=== PATIENT | male | born 1975 | race Caucasian/White ===

== ENCOUNTER 2024-04-27 15:13 | Emergency (ER) | payer OTHER, SELFPAY ==
[2024-04-27 15:15] VITALS: BP 138/106; PULSE 76; RESP 20; TEMP 36.7; O2SAT 100; BMI 27.3
--- NOTE | 2024-04-27 15:23 | ED_ITS ---
HPI - General Adult General Chief complaint: Flank Pain Stated complaint: possible kidney stone, trouble catching breath Time Seen by Provider: 04/27/24 15:16 History of Present Illness HPI narrative: Patient is a 49-year-old white male who works for a [employer], he has history of kidney stones, he had 1 surgically removed at [facility] in 2019. He has had a couple day history of left flank pain, his nose some pink tinged urine. This is very similar as prior kidney stones. The pain starts in his back and radiates her but little bit around his left flank, not all the way to his groin at this point. He had a 10 mm stone in the past. He has no other symptoms. He feels worse today. It was on and off the last couple of days. Related Data Previous Rx's ?Medication ?Instructions ?Recorded hydrocodone 5 mg-acetaminophen 325 1 tab PO Q6H PRN pain #14 tabs 04/27/24 mg tablet ketorolac 10 mg tablet 10 mg PO Q6H PRN pain 4 days #20 04/27/24 tabs Allergies Allergy/AdvReac Type Severity Reaction Status Date / Time shellfish derived Allergy Severe Anaphylaxis Verified 04/27/24 15:21 Review of Systems Status of ROS: Reports: 6 or more systems reviewed and unremarkable except as noted in History and below Exam Narrative: Exam Narrative: Objective: Patient's vital signs show elevated diastolic blood pressure, he is afebrile He is alert or x3, slightly pale He is in moderate distress secondary to discomfort Pulses regular HEENT unremarkable Back exam unremarkable the Abdomen benign soft He denies pain Extremities are no edema neurologic nonfocal Const: Vital Signs, click to edit/add: Vital Signs - 24 hr 04/27/24 15:15 04/27/24 15:27 04/27/24 15:27 Temperature 98.0 F Pulse Rate [Pulse Oximeter] 76 98 Respiratory Rate 20 32 H Blood Pressure [Ri ght Upper Arm] 138/106 H Pulse Oximetry 100 97 97 Oxygen Delivery Me thod Room Air Room Air 04/27/24 17:38 Temperature Pulse Rate [Pulse Oximeter] 78 Respiratory Rate 18 Blood Pressure [Ri ght Upper Arm] Pulse Oximetry 99 Oxygen Delivery Me thod Room Air Course Vital Signs Vital signs: Initial Vital Signs Temperature 98.0 F 04/27/24 15:15 Temperature Source Temporal Artery Scan 04/27/24 15:15 Pulse Rate 76 04/27/24 15:15 Pulse Rhythm Regular 04/27/24 15:15 Pulse Strength 3+ Normal 04/27/24 15:15 Respiratory Rate 20 04/27/24 15:15 Blood Pressure 138/106 H 04/27/24 15:15 Blood Pressure Mean 116 H 04/27/24 15:15 Blood Pressure Position Sitting 04/27/24 15:15 Pulse Oximetry 100 04/27/24 15:15 Oxygen Delivery Method Room Air 04/27/24 15:15 Vital Signs Temperature 98.0 F 04/27/24 15:15 Pulse Rate 76 04/27/24 15:15 Respiratory Rate 20 04/27/24 15:15 Blood Pressure 138/106 H 04/27/24 15:15 Pulse Oximetry 100 04/27/24 15:15 Oxygen Delivery Method Room Air 04/27/24 15:15 Temperature 98.0 F 04/27/24 15:15 Pulse Rate 78 04/27/24 17:38 Respiratory Rate 18 04/27/24 17:38 Blood Pressure 138/106 H 04/27/24 15:15 Pulse Oximetry 99 04/27/24 17:38 Oxygen Delivery Method Room Air 04/27/24 17:38 Medications Administered Medications: Discontinued Medications Generic Name Dose Route Start Last Admin Trade Name Freq PRN Reason Stop Dose Admin Sodium Chloride 1,000 mls @ 6,000 mls/hr 04/27/24 15:30 04/27/24 16:56 0.9 % Sodium Chloride 1000 Ml IV 04/27/24 15:39 Infused .Q10M DEAN Infusion Ketorolac Tromethamine 30 mg 04/27/24 15:23 04/27/24 15:31 Ketorolac 30 Mg/Ml Inj IVP 04/27/24 15:24 30 mg ONCE ONE Administration Morphine Sulfate 4 mg 04/27/24 15:27 04/27/24 15:36 Morphine 4 Mg/Ml Inj IVP 04/27/24 15:28 4 mg ONCE ONE Administration Morphine Sulfate 4 mg 04/27/24 17:32 04/27/24 17:30 Morphine 4 Mg/Ml Inj IVP 04/27/24 17:33 4 mg ONCE ONE Administration Medical Decision Making [facility] Narrative Medical decision making narrative: [age] year white male with a history of kidney stones, history of 10 mm kidney stone on the left surgically removed at [place] in 2019, presents with a couple day history of left flank pain blood tinged urine and increasing left flank pain. Rule out a kidney stone rule out other intra-abdominal pathology. Patient will get a urinalysis, labs, IV fluid, IV morphine and Toradol, will also get him a CT scan without contrast of his abdomen pelvis. Disposition pending findings above. Addendum 4:00 p.m.: The patient's white count is normal, he does have intramedullary stones on the left kidney and hydronephrosis on the left with a 6 mm mid ureteral stone, this is by my read. Radiologist to confirm. Patient has been given pain medicine he is feeling better. At this size the kidney stone still has a chance to pass on its own will have him strain his urine, use pain medications a former Toradol, will send him some [place] home as well as a urine strainer. He will need to be on light duty for couple of days and then follow up with his regular physician. He may need to see Urology as well. Lab Data Labs: Lab Results 04/27/24 04/27/24 Range/Units 15:27 16:58 WBC 9.80 (4.50-11.00) K/uL RBC 5.04 (4.30-5.90) m/uL Hgb 15.2 (13.5-17.5) gm/dL Hct 45.1 (37.0-53.0) % MCV 90 (80-100) fL MCH 30 (26-34) pg MCHC 34 (32-36) gm/dL RDW Coeff of [place] 11.8 (11.5-15.5) % Plt Count 223 (140-440) K/uL Neut % (Auto) 80.8 H (42.0-72.0) % Lymph % (Auto) 12.7 L (20-44) % [place] % (Auto) 5.8 (0.0-11.0) % Eos % (Auto) 0.3 (0.0-7.0) % Baso % (Auto) 0.3 (0.0-3.0) % Neut # (Auto) 7.90 H (1.7-7.0) K/uL Lymph # (Auto) 1.20 (0.90-2.90) K/uL [place] # (Auto) 0.60 (0.00-0.90) K/UL Eos # (Auto) 0.03 (0.00-0.50) K/uL Baso # (Auto) 0.03 (0.00-0.30) K/uL Abs Immat Gran (auto) 0.01 (0.00-0.30) K/uL Imm/Tot Granulo (auto) 0.1 % Sodium 138 (135-149) mmol/L Potassium 3.9 (3.6-5.1) mmol/L Chloride 104 (96-114) mmol/L Carbon Dioxide 25 (20-32) mmol/L Anion Gap 9 (7-15) mEq/L BUN 17 (7-30) mg/dL Creatinine 1.1 (0.5-1.5) mg/dL Estimated Creat Clear 88.18 Estimated GFR 82 ml/min Glucose 118 H (60-115) mg/dL Calcium 9.2 (8.4-10.6) mg/dL C-Reactive Protein < 0.5 L (0.5-1.0) mg/dL Urine Color Yellow (Yellow) Urine Appearance Clear (Clear) Urine pH 5.5 (5.0-8.5) Ur Specific [place] >= 1.030 (1.000-1.030) Urine Protein 1+ A (Negative) Urine Glucose (UA) Negative (Negative) Urine Ketones Trace A (Negative) Urine Blood 3+ A (Negative) Urine Nitrite Negative (Negative) Urine Bilirubin 1+ A (Negative) Urine Urobilinogen 0.2 (0.2-1.0) Ur Leukocyte Esterase Negative (Negative) Urine RBC 25-50 A (0-2) Urine WBC 0-2 (0-5) Ur Squamous Epith Cells Few (None-Few) Calcium Oxalate Crystal Moderate A (None) Urine Bacteria None (None) Discharge Plan Discharge Clinical Impression: Acute left flank pain, Kidney stone Patient Disposition: Home w/ Parent or Adult Condition: Improved Additional Instructions: Strain urine, pain medicines as needed, recommend off work for a couple of days, recommend recheck with regular doctor in 3 days. You may need to see urology again. Hopefully this stone will pass. If not you may need removal again of the stone. Return to ED if problems or concerns or increasing pain is not managed with oral medicines. Activity Level: Light activity Discharge Diet: Regular Prescriptions: New hydrocodone-acetaminophen 5-325 mg tablet 1 tab PO Q6H PRN (Reason: pain) Qty: 14 0RF ketorolac 10 mg tablet 10 mg PO Q6H PRN (Reason: pain) 4 Days Qty: 20 0RF Follow Up/Referrals: Wally Wick MD [Primary Care Provider] - Stand Alone Forms: [employer] Info Instructions
[2024-04-27 15:27] VITALS: PULSE 98; RESP 32; O2SAT 97
--- NOTE | 2024-04-27 15:27 | CRLHL7_ITS ---
For Patients: As a result of the Century Cures Act, medical imaging exams and procedure reports are released immediately into your electronic medical record. You may view this report before your referring provider. If you have questions, please contact your health care provider. INDICATION: Left flank pain since , history of kidney stones TECHNIQUE: CT abdomen and pelvis without contrast. COMPARISON: 07/30/[address] FINDINGS: Lower chest: Unremarkable. Liver: Normal in size and attenuation. No masses. Gallbladder and bile ducts: No stones or inflammation. No biliary dilatation. Pancreas: Unremarkable. No mass or inflammation. Spleen: Normal in size. No masses. Adrenal glands: 2.2 cm benign myelolipoma in the right adrenal gland, unchanged. Kidneys: 7 mm stone in the left proximal ureter causing mild left-sided hydronephrosis and perirenal edema. Additional tiny nonobstructing bilateral stones. GI tract: Unremarkable. Normal in caliber. No sign of mass or inflammation. Normal appendix. Vasculature: Unremarkable. Lymph nodes: No lymphadenopathy. Abdominal wall/Omentum/Peritoneum: Unremarkable. No sign of mass or infiltration. No free air or significant free fluid. Pelvis: Unremarkable. No pelvic masses. Bones: Unremarkable for age. IMPRESSION: 7 mm obstructing stone in the left proximal ureter. Please note that all CT scans at this facility use dose modulation, iterative reconstruction, and/or weight-based dosing when appropriate to reduce radiation dose to as low as reasonably achievable. Dictated by Bj Simpson MD @ 04/27/2024 5:19:45 PM (Electronically Signed)
[2024-04-27] MEDS: KETOROLAC 30 MG/ML inj IVP (15:31)
[2024-04-27] MEDS: MORPHINE 4 MG/ML INJ IVP ×2 (15:36→17:30)
[2024-04-27] MEDS: 0.9 % SODIUM CHLORIDE 1000 ml 1,000 ML 6000 ML IV (15:36)
[2024-04-27 15:37] LABS: Basophils Absolute Auto 0.03 K/uL (0.00-0.30); Basophils Percent Auto 0.3 % (0.0-3.0); Eosinophils Absolute Auto 0.03 K/uL (0.00-0.50); Eosinophils Percent Auto 0.3 % (0.0-7.0); Hematocrit 45.1 % (37.0-53.0); Hemoglobin* 15.2 gm/dL (13.5-17.5); Immature Granulocytes Abs Auto 0.01 K/uL (0.00-0.30); Immature Granulocytes Pct Auto 0.1 %; Lymphocytes Percent Auto 12.7 % (20-44); Mean Corpuscular HGB Conc 34 gm/dL (32-36); Mean Corpuscular Hemoglobin 30 pg (26-34); Mean Corpuscular Volume 90 fL (80-100); Monocytes Percent Auto 5.8 % (0.0-11.0); Neutrophils Percent Auto 80.8 % (42.0-72.0); Platelet Count* 223 K/uL (140-440); RDW Coefficient of Variation % 11.8 % (11.5-15.5); Red Blood Count 5.04 m/uL (4.30-5.90)
[2024-04-27 15:38] LABS: Slide Review Reflex No
[2024-04-27 15:50] LABS: Chloride* 104 mmol/L (96-114); Sodium* 138 mmol/L (135-149)
[2024-04-27 15:51] LABS: Potassium* 3.9 mmol/L (3.6-5.1)
[2024-04-27 15:53] LABS: Creatinine* 1.1 mg/dL (0.5-1.5); Est. Creatinine Clearance* 88.18; Estimated Glomerular Filt Rate 82 ml/min
[2024-04-27 15:54] LABS: Anion Gap 9 mEq/L (7-15); Blood Urea Nitrogen* 17 mg/dL (7-30); Calcium* 9.2 mg/dL (8.4-10.6); Carbon Dioxide* 25 mmol/L (20-32); Glucose* 118 mg/dL (60-115)
[2024-04-27 16:00] LABS: C Reactive Protein* < 0.5 mg/dL (0.5-1.0)
[2024-04-27 17:09] LABS: Appearance Urine Clear (Clear); Bilirubin Urine 1+ (Negative); Blood Urine 3+ (Negative); Color Urine Yellow (Yellow); Glucose Urine Negative (Negative); Ketones Urine Trace (Negative); Leukocyte Esterase Urine Negative (Negative); Nitrite Urine Negative (Negative); Protein Urine 1+ (Negative); Specific Gravity Urine >= 1.030 (1.000-1.030); Urobilinogen Urine 0.2 (0.2-1.0); pH Urine 5.5 (5.0-8.5)
[2024-04-27 17:30] LABS: Calcium Oxalate Crystals Urine Moderate; RBC Urine 25-50 (0-2); Squamous Epithelial Cell Urine Few (None-Few); WBC Urine 0-2 (0-5)
[2024-04-27 17:38] VITALS: PULSE 78; RESP 18; O2SAT 99
--- NOTE | 2024-04-27 20:29 | ED.NURSE ---
pt called in after discharge wondering if he should have been sent home with an RX for flowmax. as the MD mentioned that as something that would help me pass the stone. Flowmax was not electronically sent to pharmacy per the chart. life underwriter told pt we would look into it but cant make any promises as the MD that you saw is gone.
--- NOTE | 2024-04-27 21:05 | ED.NURSE ---
spoke with MD Shravan MD sent in order for Flomax to pt preferred pharmacy for [facility].
== END 2024-04-27 17:49 | disposition home or self-care (01) ==
PROVIDERS: Emergency Provider Family Medicine; PCP Family Medicine
DX: R10.9 Unspecified abdominal pain (principal); N20.0 Calculus of kidney
CPT/HCPCS: 36415; 74176; 80048; 81001; 81003; 85025; 86140; 87086; 94761; 96361; 96374; 96375; 99284; J1885; J2270; J7030